=== PATIENT | female | born 1985 | race Caucasian/White ===

== ENCOUNTER 2023-10-15 09:10 | Outpatient (CLI) | payer BC, SELFPAY | END 2023-10-15 09:11 | disposition home or self-care (01) | LOC: NFLDREF 10-17 13:33 | PROVIDERS: PCP Family Medicine; Referring Provider Family Medicine; Visit Provider Nurse Practitioner | DX: R35.0 Frequency of micturition (principal) | CPT/HCPCS: 87086; 87186 ==